=== PATIENT | male | born 1980 | race Caucasian/White ===

== ENCOUNTER 2020-04-05 11:10 | Emergency (ER) | payer OTHER, SELFPAY ==
[2020-04-05 11:18] VITALS: BP 137/75; PULSE 79; RESP 19; TEMP 36.3; O2SAT 99
[2020-04-05 11:20] VITALS: BP 137/75; PULSE 70; RESP 20; O2SAT 98
[2020-04-05] MEDS: FAMOTIDINE 20 MG/2 ML VIAL IV PUSH (11:29)
[2020-04-05 11:32] VITALS: RESP 20
[2020-04-05 12:37] VITALS: BP 130/76; PULSE 75; RESP 20; O2SAT 98
--- NOTE | 2020-04-05 13:07 | ED.ALLEREA ---
HPI - Allergic Reaction General Chief complaint: Allergic Reaction <Tim Muniz PA-C - Last Filed: 04/05/20 13:12> Stated complaint: ALLERGIC RXN/BEE STING/EPI <Tim Muniz PA-C - Last Filed: 04/05/20 13:12> Time Seen by Provider: 04/05/20 11:12 <Tim Muniz PA-C - Last Filed: 04/05/20 13:12> Source: patient <Tim Muniz PA-C - Last Filed: 04/05/20 13:12> Mode of arrival: ambulatory <Tim Muniz PA-C - Last Filed: 04/05/20 13:12> Limitations: no limitations <Tim Muniz PA-C - Last Filed: 04/05/20 13:12> History of Present Illness HPI narrative: Patient is a 40-year-old male who presents to emergency department for evaluation of having been stung by a bee on the right index finger patient then developed some near syncope EMS was contacted patient was given epi and Decadron the fluids on arrival to emergency department he is feeling better with resolution of symptoms. Patient is unsure as to similar occurrence in the past. On arrival patient in no distress <Tim Muniz PA-C - Last Filed: 04/05/20 13:12> Related Data Home medications: Home Medications Medication Instructions Recorded Confirmed atenolol 25 mg PO DAILY 04/05/20 04/05/20 <Tim Muniz PA-C - Last Filed: 04/05/20 13:12> Allergies/adverse reactions: Allergies Allergy/AdvReac Type Severity Reaction Status Date / Time bee venom protein (honey bee) Allergy Anaphylactic Verified 04/05/20 11:23 [bees] Shock <Tim Muniz PA-C - Last Filed: 04/05/20 13:12> Review of Systems Review of Systems: All systems reviewed & are unremarkable except as noted in HPI and below <Tim Muniz PA-C - Last Filed: 04/05/20 13:12> [facility] Social History Social History: Social History (Updated 04/05/20 @ 13:08 by Tim Muniz PA-C) Smoking status: Never smoker Gender identity (if verbalized by the patient): Male <MYRTLE Faith Last Filed: 04/05/20 13:12> Exam Narrative: Exam Narrative: GENERAL: Well-appearing, well-nourished, and in no acute distress. HEAD: Normocephalic, atraumatic. EYES: PERRLA and EOMI. ENT: Nares clear, no rhinorrhea or epistaxis. Mucous membranes moist. Oropharynx without tonsillar hypertrophy exudate or other lesions. No angioedema in the oropharynx NECK: Supple. No adenopathy or masses. No stridor CHEST: Clear to auscultation. No respiratory distress. No wheezes rales or rhonchi HEART: Regular rate and rhythm. No murmur heard. Normal peripheral pulses. EXTREMITIES: Normal range of motion. No edema. Slight swelling of the finger with staying on the right hand SKIN: Warm, dry, no rash. NEURO: No focal deficits. Alert and oriented x3. Cranial nerves II through XII grossly intact PSYCH: Normal mood and affect. <MYRTLE Faith Last Filed: 04/05/20 13:12> Course Course Emergency Course: Patient in the room in no distress aware of case findings treatment plan and diagnosis agreeing to follow-up as directed felt appropriate for outpatient reevaluation <MYRTLE Faith Last Filed: 04/05/20 13:12> Vital Signs Vital signs: Vital Signs Temperature 97.4 F L 04/05/20 11:18 Pulse Rate 79 04/05/20 11:18 Respiratory Rate 04/05/20 11:18 Blood Pressure 137/75 04/05/20 11:18 Pulse Oximetry 99 04/05/20 11:18 Temperature 97.4 F L 04/05/20 11:18 Pulse Rate 80 04/05/20 13:30 Respiratory Rate 04/05/20 13:30 Blood Pressure 128/82 04/05/20 13:30 Pulse Oximetry 94 04/05/20 13:30 <MYRTLE Faith Last Filed: 04/05/20 13:12> Vital Signs Temperature 97.4 F L 04/05/20 11:18 Pulse Rate 79 04/05/20 11:18 Respiratory Rate 19 04/05/20 11:18 Blood Pressure 137/75 04/05/20 11:18 Pulse Oximetry 99 04/05/20 11:18 Temperature 97.4 F L 04/05/20 11:18 Pulse Rate 80 04/05/20 13:30 Respiratory Rate 20 04/05/20 13:30
[2020-04-05 13:30] VITALS: BP 128/82; PULSE 80; RESP 20; O2SAT 94
== END 2020-04-05 13:45 | disposition home or self-care (01) ==
PROVIDERS: Emergency Provider Emergency Medicine; PCP Family Medicine
DX: T63.441A Toxic effect of venom of bees, accidental (unintentional), initial encounter (principal)
CPT/HCPCS: 96374; 96375; 99284; J1200

== ENCOUNTER 2020-06-20 11:29 | Emergency (ER) | payer OTHER, SELFPAY ==
[2020-06-20 11:31] VITALS: BP 115/79; PULSE 78; RESP 13; TEMP 36.6; O2SAT 96
[2020-06-20] MEDS: methylPREDNISolone SOD SUCC 125 MG VIAL IV PUSH (13:27)
[2020-06-20 13:29] VITALS: BP 112/64; PULSE 79; RESP 21; O2SAT 96
--- NOTE | 2020-06-20 13:38 | ED.ALLEREA ---
HPI - Allergic Reaction General Chief complaint: Allergic Reaction Stated complaint: bee sting Time Seen by Provider: 06/20/20 12:38 Source: patient Limitations: no limitations History of Present Illness HPI narrative: 40-year-old with a history of hypertension, allergic reaction to insect bite was brought in from home with complaints of wasp bite to the right hand. Patient states that he took his EpiPen called ambulance and he was brought in here. He presently denies any shortness of breath. He complains of mild nausea MD complaint: allergic reaction Onset (ago): hour(s) (1) Exposure: insect bite (wasp) Symptoms: rash and itching Severity: moderate Treatment prior to arrival: epinephrine Previous Allergic Reaction History: prior ED visit(s) Related Data Home Medications Medication Instructions Recorded Confirmed atenolol 25 mg PO DAILY 04/05/20 04/05/20 Allergies Allergy/AdvReac Type Severity Reaction Status Date / Time bee venom protein (honey bee) Allergy Anaphylactic Verified 04/05/20 11:23 [bees] Shock wasp Allergy Anaphylactic Uncoded 06/20/20 11:38 Shock Review of Systems Review of Systems: All systems reviewed & are unremarkable except as noted in HPI and below Constitutional: Constitutional: Reports as per HPI Eyes: Eyes: Reports as per HPI ENT: Reports system reviewed and no additional complaints, except as documented Cardiovascular: Cardiovascular: Reports no additional cardiovascular complaints Respiratory: Respiratory: Reports no additional respiratory complaints Gastrointestinal: Gastrointestinal: Reports nausea Musculoskeletal: Musculoskeletal: Reports no additional musculoskeletal complaints Neurologic: Reports system reviewed and no additional complaints, except as documented Allergic/Immunologic: Allergic/Immunologic: Reports as per HPI [facility] Social History Social History Smoking status: Never smoker Gender identity (if verbalized by the patient): Male Exam Narrative: Exam Narrative: GENERAL: Well-appearing, well-nourished, and in no acute distress. HEAD: Normocephalic, atraumatic. EYES: PERRLA and EOMI. ENT: Nares clear, no rhinorrhea or epistaxis. Mucous membranes moist. NECK: Supple. CHEST: Clear to auscultation. No respiratory distress. HEART: Regular rate and rhythm. No murmur heard. Normal peripheral pulses. ABDOMEN: Soft, nontender, nondistended, normal active bowel sounds. EXTREMITIES: Normal range of motion. No edema. SKIN: Warm, dry, small erythematous area on the right hand between thumb and index fingers NEURO: No focal deficits. Alert and oriented x3. PSYCH: Normal mood and affect. Course Vital Signs Vital signs: Vital Signs Temperature 36.6 C 06/20/20 11:31 Pulse Rate 78 06/20/20 11:31 Respiratory Rate 13 06/20/20 11:31 Blood Pressure 115/79 06/20/20 11:31 Pulse Oximetry 96 06/20/20 11:31 Temperature 36.6 C 06/20/20 11:31 Pulse Rate 79 06/20/20 13:29 Respiratory Rate 21 H 06/20/20 13:29 Blood Pressure 112/64 06/20/20 13:29 Pulse Oximetry 96 06/20/20 13:29 Discharge Plan Discharge Clinical Impression: Allergic reaction Patient Disposition: Home, Self-Care Condition: Stable Instructions: Antibiotic Form, Insect Bite or Sting (ED) Additional Instructions: Continue home meds. Prescriptions: New epinephrine [EpiPen] 0.3 mg/0.3 mL auto-injector 0.3 mg IM ONCE Qty: 1 RF: 0 No Action atenolol 25 mg Tablet 25 mg PO DAILY RF: 0 epinephrine 0.3 mg/0.3 mL auto-injector 0.3 ml SUB-Q ONCE Qty: 2 RF: 0 loratadine [Claritin] 10 mg tablet 10 mg PO DAILY PRN (Reason: allergy symptoms) Qty: 14 RF: 0 famotidine [Pepcid] 20 mg tablet 20 mg PO BID Qty: 14 RF: 0 Follow-up/Referrals: Jay Jay,Kevin Araiza MD [Primary Care Provider] - Time of Disposition: 13:45
== END 2020-06-20 14:00 | disposition home or self-care (01) ==
PROVIDERS: Emergency Provider Family Medicine; PCP Family Medicine
DX: T63.461A Toxic effect of venom of wasps, accidental (unintentional), initial encounter (principal); I10 Essential (primary) hypertension
CPT/HCPCS: 96374; 99284; J2930

== ENCOUNTER 2021-12-13 12:16 | Outpatient (CLI) | payer OTHER, SELFPAY ==
--- NOTE | ~2021-12-13 | XR_ITS ---
XR knee RT 3V 12/13/2021 12:51 Indication: Right knee pain Procedure: 3 views right knee Comparison: No prior studies for comparison. Findings: No fracture, subluxation or dislocation. No significant joint space narrowing. No joint eff usion. No foreign bodies. Impression: 1: No significant bone or joint abnormality. Reviewed, dictated and finalized at location B. ER SETTER Impression: 1: No significant bone or joint abnormality.
== END 2021-12-13 12:17 | disposition home or self-care (01) ==
DX: M25.561 Pain in right knee (principal)
CPT/HCPCS: 73562

== ENCOUNTER 2024-07-16 14:34 | Emergency (ER) | payer SELFPAY ==
[2024-07-16 14:40] VITALS: BP 142/80; PULSE 83; RESP 16; TEMP 36.4; O2SAT 100
--- NOTE | 2024-07-16 17:18 | ED.EPISTAXIS ---
HPI - Epistaxis General Chief complaint: Epistaxis Stated complaint: Nose bleed x 2 hours Time Seen by Provider: 07/16/24 15:18 History of Present Illness HPI Narrative: 44-year-old male with no pertinent past medical history aside from hypertension anxiety. He takes propranolol for both. Presents emergency room today with epistaxis that was nontraumatic in nature. He states that for last few days he has been having recurrent epistaxis at home as self-limited and resolved with direct pressure. Does not take any blood thinner medications, aspirin or Plavix. Was otherwise in his normal state of health. Remote history of ENT evaluation for sinus pain but no recent procedures instrumentation. No trauma or injuries. Was on exertion on the onset. Attributes it to dry weather. Epistaxis has mostly subsided on initial presentation but states for last 3 hours he has been feeling like he is having postnasal drip with bloody spit up. No nasal pain, headache, vision changes, headache, nauseous, vomiting, abdominal pain, shortness of breath, chest pain. Related Data Home Medications Medication Instructions Recorded Confirmed atenolol 25 mg tablet 25 mg PO DAILY 04/05/20 04/05/20 Allergies Allergy/AdvReac Type Severity Reaction Status Date / Time bee venom protein (honey bee) Allergy Anaphylactic Verified 07/16/24 14:42 [bees] Shock wasp Allergy Anaphylactic Uncoded 06/20/20 11:38 Shock Review of Systems Review of Systems: As reviewed above PMFSH Social History Social History Smoking status: Never smoker Gender identity (if verbalized by the patient): Male Exam Narrative: GENERAL: [Well-appearing, well-nourished, and in no acute distress.] HEAD: [Normocephalic, atraumatic.] EYES: [PERRLA and EOMI.] ENT: Epistaxis in the right naris, appears anterior nature, no posterior nasal involvement, no posterior pharyngeal vomited bleeding. No tenderness or deformity, no bruising. NECK: Supple. CHEST: [Clear to auscultation. No respiratory distress.] HEART: [Regular rate and rhythm]. No murmur heard. [Normal peripheral pulses.] ABDOMEN: [Soft, nondistended], [nontender], [No rigidity or guarding] EXTREMITIES: Normal range of motion. [No edema.] SKIN: Warm, dry, no rash. NEURO: [No focal deficits]. Alert and oriented [x3.] PSYCH: [Normal mood and affect.] Course Vital Signs Vital signs: Vital Signs Temperature 36.4 C 07/16/24 14:40 Pulse Rate 83 07/16/24 14:40 Respiratory Rate 16 07/16/24 14:40 Blood Pressure 142/80 H 07/16/24 14:40 Pulse Oximetry 100 07/16/24 14:40 Temperature 36.4 C 07/16/24 14:40 Pulse Rate 83 07/16/24 14:40 Respiratory Rate 16 07/16/24 14:40 Blood Pressure 142/80 H 07/16/24 14:40 Pulse Oximetry 100 07/16/24 14:40 MDM - Epistaxis MDM Narrative Medical decision making narrative: 44-year-old male presenting for epistaxis. Appears to be anterior in the right naris. Has been recurrent over last several days. No trauma or instrumentation. Previous ENT procedure many years prior according to himself. Was otherwise in his normal state of health. Epistaxis has slowly stopped over last 2 hours with direct pressure. Does appear to have some residual bleeding anteriorly. He was provided Afrin nasal spray 3 sprays in each nostril with good improvement. Direct pressure and re-evaluation showed complete cessation of the bleeding. Patient was concerned about going home with rebleeding. Silver nitrate cautery was applied to the portion of the anterior naris that was bleeding of the right nose. Good effect. Patient was observed without any recurrence of his epistaxis and was stable for discharge home at this time with the Afrin bottle for recurrence. He was requesting ENT referral which was provided to him. Patient stable for discharge home at this time. Medical Records Attestation: I
[2024-07-16 17:30] VITALS: BP 125/87; PULSE 62; RESP 16; O2SAT 100
== END 2024-07-16 17:30 | disposition home or self-care (01) ==
PROVIDERS: Emergency Provider Student in an Organized Health Care Education/Training Program
DX: R04.0 Epistaxis (principal); I10 Essential (primary) hypertension; F41.9 Anxiety disorder, unspecified
CPT/HCPCS: 99283; A9270